=== PATIENT | female | born 1980 | race Caucasian/White ===

== ENCOUNTER → 2017-04-17 | Outpatient (REF) | payer OTHER | LOC: M LAB REF 17:40 | PROVIDERS: ATTEND Family Medicine | DX: D22.5 Melanocytic nevi of trunk (principal) ==

== ENCOUNTER → 2017-09-22 | Outpatient (CLI) | payer OTHER ==
[2017-09-22 14:03] LABS: FERRITIN 118 NG/ML (8-252)
[2017-09-22 14:03] LABS: IRON (FE) 82 UG/DL (50-170)
[2017-09-23 08:09] LABS: TRANSFERRIN 188 mg/dL (200-370)
== END ==
LOC: M SMT 10:28
DX: R79.0 Abnormal level of blood mineral (principal)
CPT/HCPCS: 83540

== ENCOUNTER → 2017-10-12 | Outpatient (CLI) | payer OTHER ==
[2017-10-12 13:49] LABS: BASO # 0.1 10^3/uL (0.0-0.2); BASO % 0.5 % (0.0-1.0); EOS # 0.1 10^3/uL (0.0-0.50); EOS % 0.8 % (0.0-3.0); HEMATOCRIT 38.6 % (36.0-47.0); HEMOGLOBIN 12.9 g/dl (12.0-16.0); IMMATURE GRANULOCYTE % 0.4 % (0-3.0); LYMPH # 2.4 10^3/uL (1.5-4.5); LYMPH % 26.2 % (24.0-44.0); MEAN CORPUSCULAR HEMOGLOBIN 32.6 pg (27.0-33.0); MEAN CORPUSCULAR HGB CONC 33.4 g/dl (32.0-36.5); MEAN CORPUSCULAR VOLUME 97.5 fl (80.0-96.0); MONO # 0.5 10^3/uL (0.0-0.8); MONO % 5.7 % (0.0-5.0); NEUTROPHILS % 66.4 % (36.0-66.0); PLATELET COUNT, AUTOMATED 265 10^3/uL (150-450); RED BLOOD COUNT 3.96 10^6/uL (4.00-5.40); RED CELL DISTRIBUTION WIDTH 12.1 % (11.5-14.5); WHITE BLOOD COUNT 9.1 10^3/uL (4.0-10.0)
[2017-10-12 14:31] LABS: RUBELLA IgG QUALITATIVE IMMUNE (IMMUNE)
[2017-10-12 14:34] LABS: HBsAg Prenatal NEGATIVE (NEGATIVE)
[2017-10-12 15:00] LABS: HIV 1&2 SCREEN CENTAUR NEGATIVE (NEGATIVE)
[2017-10-12 15:00] LABS: HEPATITIS C VIRUS ABY INDEX < 0.0 INDEX (<0.8)
[2017-10-12 17:12] LABS: CHLAMYDIA DNA AMPLIFICATION NEGATIVE (NEGATIVE); GC DNA AMPLIFICATION NEGATIVE (NEGATIVE)
== END ==
LOC: M LAB 11:43
DX: Z34.81 Encounter for supervision of other normal pregnancy, first trimester (principal); Z3A.12 12 weeks gestation of pregnancy
CPT/HCPCS: 86762

== ENCOUNTER → 2018-01-17 | Outpatient (CLI) | payer OTHER ==
[2018-01-17 17:14] LABS: GLUCOSE CHALLENGE TEST 1 HOUR 93 MG/DL (LESS THAN 140)
[2018-01-17 17:18] LABS: HEMATOCRIT 34.2 % (36.0-47.0); HEMOGLOBIN 11.3 g/dl (12.0-15.5); MEAN CORPUSCULAR HEMOGLOBIN 34.2 pg (27.0-33.0); MEAN CORPUSCULAR VOLUME 103.6 fl (80.0-96.0); PLATELET COUNT, AUTOMATED 282 10^3/uL (150-450); WHITE BLOOD COUNT 9.3 10^3/uL (4.0-10.0)
== END ==
LOC: M WUC 10:50
DX: Z36.89 Encounter for other specified antenatal screening (principal); Z3A.00 Weeks of gestation of pregnancy not specified
CPT/HCPCS: 82950

== ENCOUNTER → 2018-02-24 | Outpatient (REF) | payer OTHER | LOC: M LAB REF 13:04 | DX: Z34.83 Encounter for supervision of other normal pregnancy, third trimester (principal); Z36.89 Encounter for other specified antenatal screening | CPT/HCPCS: 87086 ==

== ENCOUNTER → 2018-03-23 | Outpatient (REF) | payer OTHER | LOC: M LAB REF 13:01 | DX: Z34.83 Encounter for supervision of other normal pregnancy, third trimester (principal); Z3A.00 Weeks of gestation of pregnancy not specified ==

== ENCOUNTER 2018-04-25 11:41 | Inpatient (IN) | payer OTHER ==
[2018-04-25 12:54] LABS: HEMATOCRIT 34.4 % (36.0-47.0); HEMOGLOBIN 11.2 g/dl (12.0-15.5); MEAN CORPUSCULAR HEMOGLOBIN 31.7 pg (27.0-33.0); MEAN CORPUSCULAR HGB CONC 32.6 g/dl (32.0-36.5); MEAN CORPUSCULAR VOLUME 97.5 fl (80.0-96.0); PLATELET COUNT, AUTOMATED 279 10^3/uL (150-450); RED BLOOD COUNT 3.53 10^6/uL (4.00-5.40); RED CELL DISTRIBUTION WIDTH 13.3 % (11.5-14.5); WHITE BLOOD COUNT 9.8 10^3/uL (4.0-10.0)
[2018-04-25] MEDS ORDERED: OXYTOCIN 30 UNITS IN 0.9% NaCl 500ML IV BAG (J2590) As Ordered (12:57)
[2018-04-25] MEDS: LR 1,000 ML IV (15:28)
[2018-04-25] MEDS: OXYTOCIN DRIP 30 UNITS in APPROPRIATE DILUENT 1 EA IV (15:28)
[2018-04-25] MEDS ORDERED: FENTANYL 2MCG/ML ROPIVACAINE 0.2% IN 0.9% NACL 200ML IVBAG As Ordered (15:52)
[2018-04-25 23:42] LABS: CORD GAS ABE A -4.5; CORD GAS ABE V -1.9; CORD GAS HCO3 V 24.1 MEQ/L; CORD GAS O2 SAT A 60.5 %; CORD GAS O2 SAT V 59.7 %; CORD GAS PCO2 A 51.8 mmHg; CORD GAS PCO2 V 45.3 mmHg; CORD GAS PH A 7.266 UNITS; CORD GAS PH V 7.343 UNITS; CORD GAS PO2 A 28.7 mmHg; CORD GAS PO2 V 25.3 mmHg; CORD GAS SBC A 19.8 MEQ/L; CORD GAS SBC V 21.8 MEQ/L; CORD GAS TCO2 A 24.6 MEQ/L; CORD GAS TCO2 V 25.4 MEQ/L
[2018-04-25] MEDS ORDERED: DOCUSATE SODIUM 100 MG CAP PO (23:45)
[2018-04-25] MEDS ORDERED: DIBUCAINE 1% OINTMENT 30GM TOP (23:45)
[2018-04-25] MEDS ORDERED: ANUSOL HC CREAM 30GM TOP (23:45)
[2018-04-25] MEDS ORDERED: METHYLERGONOVINE MALEATE 0.2 MG TAB PO (23:45)
[2018-04-25] MEDS ORDERED: RHOGAM 300 MCG (1500 IU) INJ (J2790) IM (23:45)
[2018-04-25] MEDS ORDERED: MOM 30ML SUSPENSION UDC PO (23:45)
[2018-04-25] MEDS ORDERED: MEASLES,MUMPS,RUBELLA VACCINE INJ (MMR-II) (90707) SC (23:45)
[2018-04-26] MEDS: LR 300 ML IV (02:12)
[2018-04-26] MEDS: OXYTOCIN DRIP 30 UNITS in APPROPRIATE DILUENT 1 EA IV (02:12)
[2018-04-26] MEDS: ACETAMINOPHEN 500 MG TAB PO ×2 (02:33→16:15)
[2018-04-26] MEDS: PRENATAL VITAMINS CHEWABLE TABLET PO (08:46)
[2018-04-26] MEDS: DOCUSATE SODIUM 100 MG CAP PO ×2 (08:46→20:13)
[2018-04-26] MEDS: IBUPROFEN 800 MG TAB PO ×2 (11:49→20:13)
[2018-04-27] MEDS: DOCUSATE SODIUM 100 MG CAP PO (08:10)
[2018-04-27] MEDS: IBUPROFEN 800 MG TAB PO (08:10)
[2018-04-27] MEDS: PRENATAL VITAMINS CHEWABLE TABLET PO (08:10)
== END 2018-04-27 12:40 | disposition home or self-care (01) | DRG 775 ==
LOC: M LDI 11:41 → M OBS 04-26 02:30
PROVIDERS: Obstetrics & Gynecology
PROC: 10E0XZZ Delivery of Products of Conception, External Approach (ICD-10-PCS; principal; 2018-04-25)
PROC: 3E033VJ Introduction of Other Hormone into Peripheral Vein, Percutaneous Approach (ICD-10-PCS; 2018-04-25)
DX: O48.0 Post-term pregnancy (principal); Z37.0 Single live birth; Z3A.40 40 weeks gestation of pregnancy; O09.523 Supervision of elderly multigravida, third trimester; O69.89X0 Labor and delivery complicated by other cord complications, not applicable or unspecified

== ENCOUNTER → 2018-08-16 | Outpatient (CLI) | payer OTHER ==
[~2018-08-16] MED LIST: IBUP-1114 PO; MAPA500T17 PO; PRENTAB9 PO
[2018-08-16 15:32] LABS: BASO # 0.1 10^3/uL (0.0-0.2); BASO % 1.2 % (0.0-1.0); EOS # 0.1 10^3/uL (0.0-0.50); EOS % 2.2 % (0.0-3.0); HEMATOCRIT 39.7 % (36.0-47.0); HEMOGLOBIN 12.6 g/dl (12.0-15.5); LYMPH # 1.9 10^3/uL (1.5-4.5); LYMPH % 32.6 % (24.0-44.0); MEAN CORPUSCULAR HEMOGLOBIN 31.1 pg (27.0-33.0); MEAN CORPUSCULAR HGB CONC 31.7 g/dl (32.0-36.5); MONO # 0.5 10^3/uL (0.0-0.8); MONO % 7.6 % (0.0-5.0); NEUTROPHILS # 3.3 10^3/uL (1.8-7.7); NEUTROPHILS % 56.1 % (36.0-66.0); PLATELET COUNT, AUTOMATED 270 10^3/uL (150-450); RED BLOOD COUNT 4.05 10^6/uL (4.00-5.40)
[2018-08-16 15:44] LABS: ALBUMIN 3.7 GM/DL (3.2-5.2); ALT/SGPT 29 U/L (12-78); BILIRUBIN,TOTAL 0.6 MG/DL (0.2-1.0); BLOOD UREA NITROGEN 21 MG/DL (7-18); CALCIUM LEVEL 9.1 MG/DL (8.5-10.1); CARBON DIOXIDE LEVEL 33 MEQ/L (21-32); CHLORIDE LEVEL 103 MEQ/L (98-107); CREATININE FOR GFR 0.67 MG/DL (0.55-1.30); FERRITIN 60 NG/ML (8-252); FREE T4 0.89 NG/DL (0.76-1.46); GLOMERULAR FILTRATION RATE > 60.0 (>60); GLUCOSE, FASTING 87 MG/DL (70-100); IRON (FE) 166 UG/DL (50-170); PERCENT SATURATION 64.1 % (13.2-45.0); POTASSIUM SERUM 4.1 MEQ/L (3.5-5.1); SODIUM LEVEL 140 MEQ/L (136-145); THYROID STIMULATING HORMONE 0.938 uIU/ML (0.358-3.740); TOTAL IRON BINDING CAPACITY 259 UG/DL (250-450); TOTAL PROTEIN 7.1 GM/DL (6.4-8.2)
[2018-08-16 15:47] LABS: TOTAL 25(OH) VITAMIN D 23.6 NG/ML (30.0-100.0)
== END ==
LOC: M WUC 11:52
PROVIDERS: ATTEND Family Medicine
DX: L60.9 Nail disorder, unspecified (principal)